=== PATIENT | female | born 1990 | race Two or more races ===

== ENCOUNTER 2019-12-11 20:04 | Emergency (ER) | payer MEDICAID ==
[~2019-12-11] VITALS: Ht 172.7 cm; Wt 122.5 kg
[2019-12-11 21:13] LABS: Urine Bacteria FEW /hpf (None Seen); Urine Blood TRACE /uL (Negative); Urine Mucus FEW (None Seen); Urine Specific Gravity 1.023 (1.001-1.035); Urine WBC 369 /hpf (0 - 5); Urine WBC Clumps PRESENT /hpf (None Seen)
[2019-12-11 22:12] VITALS: BP 143/84
[2019-12-11] MEDS ORDERED: cefTRIAXone SOD 1,000 MG VL IM ONE (22:15)
== END 2019-12-11 22:30 | disposition home or self-care (01) ==
LOC: ER 20:10
DX: N39.0 Urinary tract infection, site not specified (principal); Z32.02 Encounter for pregnancy test, result negative
CPT/HCPCS: 81001; 81025; 96372; 99283; J0696